=== PATIENT | male | born 1970 | race Caucasian/White ===

== ENCOUNTER 2025-09-13 07:49 | Day surgery (SDC) | payer OTHER, SELFPAY ==
[2025-09-13] VITALS (11 sets, daily range): BP systolic 104–141; BP diastolic 70–84; PULSE 51–69; RESP 16; TEMP 36.7–37.1; O2SAT 92–98; BMI 35.4
[2025-09-13] MEDS: LACTATED RINGERS 1000 ML 1,000 ML 100 ML IV (08:25)
[2025-09-13] MEDS: SODIUM CHLORIDE 0.9 % (FLUSH) 10 ML SYRINGE IVF (08:25)
--- NOTE | 2025-09-13 09:28 | W.PM.H&PU ---
History & Physical Update History & Physical Update H&P Reviewed and patient assessed: No changes noted
[2025-09-13] MEDS: BUPIVACAINE 0.25% 30 ML INJECTION (10:36)
--- NOTE | 2025-09-13 10:56 | PM.GSPRC ---
Operative Note Date of procedure: 09/13/25 Pre-op diagnosis: 1. Symptomatic right inguinal hernia. Post-op diagnosis: 1. Small indirect and small direct right inguinal hernia. Type of Procedure: 1. Laparoscopic right inguinal hernia repair with mesh. Indications: 55-year-old male came to clinic for evaluation of right groin pain. Patient was previously seen for similar complaints 3 years ago but no hernia was noted. Patient states that a few months ago he noticed that his right groin pain returned. He also noticed a small bulge. He described the pain at the bulge as dull and intermittent, worse with sitting. Patient is active and was hiking over the summer and noticed pressure in the right groin during hiking. He thinks that the bulge maybe increased in size as well. On clinical exam with the patient standing up there is a small asymmetry in the right inguinal canal concerning for small inguinal hernia. With the patient doing Valsalva, there is a small right inguinal hernia palpated. There was no evidence of left inguinal hernia on clinical exam. Given patient's clinical history and his symptoms, laparoscopic right inguinal hernia repair was recommended. The procedure was discussed in detail. The risks associated procedure including infection, bleeding, injury to preperitoneal organs, and hernia recurrence were all discussed with the patient, and he agreed to proceed. Procedure Description: After discussing the risks and benefits of the procedure, the patient signed informed consent.? The operative site was marked and the patient was brought to the operating room and placed on the operating table in supine position.? Care was taken to pad the patient's pressure points.?? The patient was then intubated by anesthesia.?? The operative site was then prepped and draped in the usual sterile fashion.? A time-out was then performed. An infraumbilical skin incision was made with a scalpel and subcutaneous tissues were dissected with electrocautery. Anterior sheath was incised with electrocautery and rectus muscle was retracted laterally. Posterior sheath was noted to be incised together with the anterior sheath. The posterior sheath was grasped and oversewn with 3-0 Vicryl suture. A 12 mm spacemaker dissector system was introduced into the incision and advanced over the posterior sheath into preperitoneal space. Preperitoneal space was dissected with manually insufflating air under direct visualization. Once the tissues were dissected, the balloon was deflated and removed.? A laparoscopic balloon was placed into preperitoneal space and balloon was inflated. Preperitoneal space was insufflated with air. No bleeding was identified upon examination of preperitoneal space. We then placed two 5 mm ports suprapubically under direct visualization. ? The preperitoneal tissues were bluntly dissected with graspers in the right preperitoneal space.? The pubic bone was identified and? cleared from preperitoneal tissue.?? Inferior epigastrics on right?side were retracted towards the abdominal wall.?? Spermatic cord? was identified and dissected circumferentially.? This was done bluntly. The direct right inguinal hernia space was identified and was small.?? The indirect hernia sac was noted and peritoneum was dissected bluntly from the spermatic cord. I attempted to reduce the hernia sac multiple times with traction applied to the hernia sac but was not successful. I elected to clip the hernia sac near the internal ring with 5 mm clips. The proximal and distal ends of the hernia sac were clipped and the hernia sac was incised with hot Metzenbaum scissors. The hernia sac was then retracted.?? When adequate space was developed for mesh placement, a right-sided medium-sized Bard 3D mesh was used and positioned around the spermatic cord. The mesh was tacked medially and laterally with?tacks.? Additional local anesthetic was injected directly into pre-peritoneal space. ? The space was deflated under direct visualization and mesh appeared to be still lying in a good position. The ports were then removed. The abdomen was tympanic to percussion suggestive of some intra-abdominal air. The posterior sheath and peritoneum were then grasped with Suad clamps and incised with Metzenbaum scissors. Abdomen was entered and pneumoperitoneum was released. This was then closed with a [id number] 3-0 Vicryl suture. Anterior sheath was then closed with a running 0-0 vicryl suture. Skin was closed with 4-0 monocryl using subcuticular stitch. Steri strips were applied over the laparoscopic?incisions. ? All counts were correct at the end of the case. Patient tolerated the procedure well and was transferred to PACU without any complications. Findings: Small direct and indirect hernias. Repaired with medium-sized 3D max Bard mesh. Implants: 3DMax Bard mesh. Anesthesia: SMITHA Surgeon: Sebastien Palma MD Estimated blood loss (mL): 5 Condition: stable Disposition: PACU
--- NOTE | 2025-09-13 11:00 | P.ANES_ITS ---
Anesthesia Charges Start Date/Time Anesthesia Start Date: 09/13/25 Anesthesia Start Time: 09:19 Stop Date/Time Anesthesia Stop Date: 09/13/25 Anesthesia Stop Time: 11:01 Coding CPT Codes CPT Codes: ANESTH REPAIR OF HERNIA - 62698 ([id number]) P2 - PATIENT W/MILD SYST DISEASE, QK - STAPLER COIL UNIT 2-4 CNCRNT ANES PROC, QX - GAS WELDING EQUIPMENT MECHANIC SVC W/ MD MED DIRECTION
--- NOTE | 2025-09-13 11:00 | W.ANESCHARGE ---
Anesthesia Charges Start Date/Time Anesthesia Start Date: 09/13/25 Anesthesia Start Time: 09:19 Stop Date/Time Anesthesia Stop Date: 09/13/25 Anesthesia Stop Time: 11:01 Coding CPT Codes CPT Codes: ANESTH REPAIR OF HERNIA - 06557 ([id number]) P2 - PATIENT W/MILD SYST DISEASE, QK - FILM DRYING MACHINE OPERATOR 2-4 CNCRNT ANES PROC, QX - ENVIRONMENTAL SERVICES AIDE SVC W/ MD MED DIRECTION
--- NOTE | 2025-09-13 11:21 | P.ANES_ITS ---
Anesthesia Charges Start Date/Time Anesthesia Start Date: 09/13/25 Anesthesia Start Time: 09:19 Stop Date/Time Anesthesia Stop Date: 09/13/25 Anesthesia Stop Time: 11:01 Coding CPT Codes CPT Codes: ANESTH SURG LOWER ABDOMEN - 98504 ([id number]) P2 - PATIENT W/MILD SYST DISEASE, QK - THERMOFORMING OPERATOR 2-4 CNCRNT ANES PROC, QX - FLOOR CARE TECHNICIAN SVC W/ MD MED DIRECTION
--- NOTE | 2025-09-13 11:21 | W.ANESCHARGE ---
Anesthesia Charges Start Date/Time Anesthesia Start Date: 09/13/25 Anesthesia Start Time: 09:19 Stop Date/Time Anesthesia Stop Date: 09/13/25 Anesthesia Stop Time: 11:01 Coding CPT Codes CPT Codes: ANESTH SURG LOWER ABDOMEN - 59681 ([id number]) P2 - PATIENT W/MILD SYST DISEASE, QK - DIRECTOR OF QUALITY CONTROL 2-4 CNCRNT ANES PROC, QX - PERINATAL EDUCATOR SVC W/ MD MED DIRECTION
[2025-09-13] MEDS: HYDROCODONE-ACETAMIN 5-325 MG 1 TAB PO (12:00)
== END 2025-09-13 12:45 | disposition home or self-care (01) ==
PROVIDERS: PCP Surgery; Visit Provider Surgery
PROC: (CPT 49650; principal; 2025-09-13 09:30)
DX: K40.90 Unilateral inguinal hernia, without obstruction or gangrene, not specified as recurrent (principal)
CPT/HCPCS: 49650; 00830; 00840; A9270; C1781; J0665; J0690; J1100; J1885; J2405; J2704; J2710; J3010; J3490; J7120